=== PATIENT | female | born 1955 | race Caucasian/White ===

== ENCOUNTER → 2018-05-01 | Outpatient (CLI) | payer OTHER ==
[~2018-05-01] MED LIST: ALB0.5 INH; AML5 PO; ASPI-715 PO; AZEL50GE4 TP; BUDE10.2 IH; CALC250T7 PO; DES5 PO; DIOVAN/HCTZ; ESC10 PO; FISH OIL1 CAP PO; GLUC-142 PO; IBU200 PO; IBU800 PO; IPR14R INH; KET10 PO; LOR5/325 PO; MAXALT PO; MELO-150 PO; MON10 PO; PAN40 PO; PER PO; POTA99TA13 PO; TRAZ50 PO; TRAZADONE PO; VALS1TAB76 PO; VICODIN PO
== END ==
LOC: LAB 14:25
PROVIDERS: ATTEND Family Medicine
DX: G44.221 Chronic tension-type headache, intractable (principal)
CPT/HCPCS: 36415; 82040; 82247; 82310; 82374; 82435; 82565; 82947; 84075; 84132; 84155; 84295; 84450; 84460; 84520

== ENCOUNTER → 2018-05-02 | Outpatient (CLI) | payer OTHER ==
[~2018-05-02] MED LIST changes: +IOPAMIDOL 76% 75 ML INFUS BTL 75 ML ONE
--- NOTE | 2018-05-02 14:48 | RADIOLOGY IMAGING REPORT ---
FACILITY: [facility] - [place] PATIENT NAME: Regina Murdock : 1955 MR: [id number] V: [id number] EXAM DATE: ORDERING PHYSICIAN: BRANDY RENTERIA TECHNOLOGIST: Location: [facility] - [place] Patient: Regina Murdock : 1955 Visit/Account:[id number] Date of Sevice: 05/02/2018 EXAMINATION: Head CT without IV contrast Head CT with IV contrast HISTORY: Left-sided headache, photophobia, vision changes left eye TECHNIQUE: Contiguous axial images were obtained from the skull base to the vertex before and after IV contrast. Sagittal and coronal reformatted images are also submitted. Dose Lowering Technique One of the following dose optimization techniques was utilized in the performance of this exam: Autom ated exposure control; adjustment of the mA and/or kV according to the patient's size; or use of an i terative reconstruction technique. Specific details can be referenced in the facility's radiology C T exam operational policy. CONTRAST: 75 mL of IV Isovue-370 COMPARISON: None. FINDINGS: Brain volume: There is mild bifrontal cortical atrophy Ventricles: Normal. Acute ischemic changes: None. Hemorrhage: None. Masses / edema: There Is a 1 cm round cystic structure in the medial left temporal lobe which likely represents an incidental prominent perivascular space as opposed to an area of porencephaly There is an incidental small lipoma in the anterior interhemispheric fissure Enhancement: Normal. Borja-white: Negative. White matter: Normal. Vessels: Negative. Extra-axial: Negative. Calvarium / scalp: Negative. Skull base / visualized face: Negative. Visualized sinuses / orbits: There is a small air-fluid level in the left maxillary sinus and mucosa l thickening/fluid in the left ethmoid air cells IMPRESSION: There is a small air-fluid level in the left maxillary sinus and mucosal thickening/fluid in the left ethmoid air cells Incidental lipoma in the anterior interhemispheric fissure Mild bifrontal cortical atrophy Report Dictated By: Josefina Beckman MD at 05/02/2018 2:38 PM Report E-Signed By: Josefina Beckman MD at 05/02/2018 2:45 PM WSN:[email or web address]
== END ==
LOC: CT 02:02
PROVIDERS: ATTEND Family Medicine
DX: J32.0 Chronic maxillary sinusitis (principal); D17.79 Benign lipomatous neoplasm of other sites; G31.9 Degenerative disease of nervous system, unspecified
CPT/HCPCS: 70470; Q9967

== ENCOUNTER → 2018-05-21 | Outpatient (CLI) | payer OTHER ==
[~2018-05-21] MED LIST changes: -IOPAMIDOL 76% 75 ML INFUS BTL 75 ML ONE
[2018-05-21 15:57] LABS: PLATELET COUNT, AUTOMATED 128 K/uL (150-450)
--- NOTE | 2018-05-21 16:39 | RADIOLOGY IMAGING REPORT ---
FACILITY: [facility] - [place] PATIENT NAME: Regina Murdock : 1955 MR: [id number] V: [id number] EXAM DATE: [id number] ORDERING PHYSICIAN: BRANDY RENTERIA TECHNOLOGIST: [place] [facility] [place] Patient: Regina Murdock : 1955 Visit/Account:[id number] Date of Sevice: 05/21/2018 Exam type: CHEST PA AND LAT History: History of bronchitis Comparison: July 22, 2011. Findings: The lungs are free of acute effusions, infiltrates or edema. No evidence of acute peribronchial thic kening at this time Cardiac silhouette is normal in size. The trachea is in midline. There are spo ndylotic changes of the thoracic spine IMPRESSION: 1. No acute cardiopulmonary process is seen. No evidence of acute peribronchial thickening at this time Report Dictated By: Josefina Beckman MD at 05/21/2018 4:33 PM Report E-Signed By: Josefina Beckman MD at 05/21/2018 4:35 PM WSN:[email or web address]
== END ==
LOC: LAB 15:41
PROVIDERS: ATTEND Family Medicine
DX: J20.8 Acute bronchitis due to other specified organisms (principal); R50.9 Fever, unspecified; M47.814 Spondylosis without myelopathy or radiculopathy, thoracic region
CPT/HCPCS: 36415; 71046; 82040; 82247; 82310; 82374; 82435; 82565; 82947; 84075; 84132; 84155; 84295; 84450; 84460; 84520; 85025; 87502

== ENCOUNTER → 2018-08-06 | Outpatient (CLI) | payer OTHER ==
--- NOTE | 2018-08-08 16:26 | RADIOLOGY IMAGING REPORT ---
FACILITY: [facility] PATIENT NAME: STEPHANI SNOW : [id number] MR: [id number] V: [id number] EXAM DATE: ORDERING PHYSICIAN: BRANDY RENTERIA TECHNOLOGIST: Rosemarie Herrera PROCEDURE:BILATERAL DIGITAL SCREENING MAMMOGRAM WITH CAD ASSISTED INTERPRETATION & 3D TOMOSYNTHESIS COMPARISON:Prior mammograms 02/20/17, 01/15/15, 01/06/15, 11/28/13, 11/27/12. INDICATIONS:screening FINDINGS: The breasts are heterogeneous dense which may obscure small masses. The parenchymal pattern has remained stable allowing for difference in mammographic technique & patient positioning. There is a biopsy clip in the upper outer quadrant of the Right breast that remains stable. DIAGNOSTIC CATEGORY 2--BENIGN FINDING. RECOMMENDATIONS: ROUTINE MAMMOGRAM AND CLINICAL EVALUATION. IMPRESSION: BIRADS 2: Benign finding. No significant abnormality is seen. Dictated by: Josefina Beckman M.D. on 08/08/2018 at 9:39 Transcribed by: JUNG on 08/08/2018 at 9:42 Approved by: Josefina Beckman M.D. on 08/08/2018 at 16:25 [facility]
== END ==
LOC: MAMO 03:48
PROVIDERS: ATTEND Family Medicine
DX: Z12.31 Encounter for screening mammogram for malignant neoplasm of breast (principal)
CPT/HCPCS: 77063; 77067

== ENCOUNTER → 2018-11-16 | Outpatient (CLI) | payer OTHER ==
--- NOTE | 2018-11-16 15:59 | RADIOLOGY IMAGING REPORT ---
FACILITY: [facility] PATIENT NAME: Regina Murdock : 1955 MR: [id number] V: [id number] EXAM DATE: [id number] ORDERING PHYSICIAN: BRANDY RENTERIA TECHNOLOGIST: Location: [facility] Patient: Regina Murdock : 1955 Visit/Account:[id number] Date of Sevice: 11/16/2018 PELVIC HISTORY: Uterine and right adnexal enlargement TECHNIQUE: Transabdominal and transvaginal ultrasound pelvis. COMPARISON: None. FINDINGS: Uterus: Retroverted; 5.7 cm length x 3 cm AP x 4.6 cm transverse. Myometrium: There is an 8 mm fibroid along the superior fundus. Endometrium: There is a small amount of fluid noted within the endometrial canal; double thickness 6. 4 mm. Cervix: Nabothian cysts. Ovaries: Right - 2.4 x 1.1 x 2.6 cm Left - 2.2 x 1.8 x 1.9 cm Blood flow is documented in each ovary by duplex Doppler ultrasound. Adnexa: Grossly unremarkable. Free pelvic fluid: None. IMPRESSION: There is a retroverted uterus with an 8 mm a superior fundal fibroid A small amount of fluid is noted within the endometrial canal Nabothian cysts Report Dictated By: Josefina Beckman MD at 11/16/2018 3:52 PM Report E-Signed By: Josefina Beckman MD at 11/16/2018 3:55 PM WSN:[email or web address]
== END ==
LOC: US 00:27
PROVIDERS: ATTEND Family Medicine
DX: N85.4 Malposition of uterus (principal); D25.9 Leiomyoma of uterus, unspecified
CPT/HCPCS: 76856

== ENCOUNTER 2019-01-16 00:20 | Day surgery (SDC) | payer OTHER ==
[~2019-01-16] VITALS: Ht 172.7 cm; Wt 93.0 kg
[~2019-01-16 00:20] MED LIST changes: +FLUO-201 PO; +GOLYTE PO; +METO-233 PO; +SIMV10TA96 PO
[2019-01-16 09:55] VITALS: BP 130/80
[2019-01-16] MEDS ORDERED: LIDOCAINE MPF 1% 5 ML VIAL ONE (10:05)
[2019-01-16] MEDS ORDERED: KETAMINE HCL-NS 50 MG/5 ML SYR ONE (10:05)
[2019-01-16] MEDS ORDERED: PROPOFOL EMUL(*) 10MG/ML 20 ML 40 ML ONE (10:05)
[2019-01-16] MEDS ORDERED: NORMOSOL R SOLN(*) 1000 ML BAG 1,000 ML IV PRN (10:10)
[2019-01-16] MEDS ORDERED: LIDOCAINE/SOD BICARB 8.4% SYR ID ONE (10:10)
[2019-01-16 11:02] VITALS: BP 132/90
[2019-01-16 11:13] VITALS: BP 112/71
--- NOTE | 2019-01-16 11:16 | Short(Outpt) Discharge Summary ---
Discharge Summary Reason for Hosp/Final Diag: (1) GERD (gastroesophageal reflux disease) Status: Chronic Hospital Course & Plan: EGD with gastric polypectomy completed without problems. (2) Change in bowel habits Status: Chronic Hospital Course & Plan: Colonoscopy completed without problems. (3) Colon cancer screening Status: Chronic (4) Decreased stool caliber Status: Chronic (5) Constipation Status: Chronic Departure Discharge to: Home, Self Care Discharge Instructions Home Meds Active Scripts Peg/Electrolytes (GOLYTELY SOLUTION) 4,000 Ml Soln, 1 GAL PO ONCE, #1 GAL 0 Refills Prov:ROBBIE JORDAN MD 12/04/18 Reported Medications Simvastatin (ZOCOR) 10 Mg Tablet, 5 MG PO HS, TAB 01/09/19 Metoprolol Succinate (TOPROL XL) 50 Mg Tab.er.24h, 1 TAB PO QDAY, TAB 01/09/19 Fluoxetine Hcl (PROZAC) 10 Mg Capsule, 10 MG PO QDAY, CAPSULE 12/04/18 Albuterol Sulfate (Albuterol Inh Conc) 2.5 Mg/0.5 Ml Nebu, 2.5 MG INH PRN, 0 Refills DILUTE BEFORE USING 07/22/11 Ipratropium Henderson (Atrovent Inhaler) 14 Gm Inh, 0 INH PRN, 0 Refills TWO PUFFS 07/22/11 Ibuprofen (Motrin) 200 Mg Tab, 200 MG PO PRN, #20 0 Refills 07/22/11 [place]-3 Fatty Acids (Fish Oil) 1 Cap Capsule, 2 CAP PO DAILY, 0 Refills 07/22/11 Aspirin (Aspirin) 81 Mg Tablet.dr, 81 MG PO BID, 0 Refills 07/22/11 Pantoprazole Sod (Protonix) 40 Mg Tabec, 40 MG PO BID, 0 Refills 07/22/11 [Trazadone] No Conflict Check, 100 MG PO QHS, 0 Refills 07/22/11 Valsartan/Hydrochlorothiazide (Diovan Hct 320/12.5 Mg Tab) 1 Tab Tablet, 1 TAB PO QAM, 0 Refills 07/22/11 Discontinued Reported Medications Ketorolac Tromethamine (Toradol) 10 Mg Tab, 10 MG PO QID, #20 0 Refills 07/26/11 Calcium Citrate (Calcium Citrate) 250 Mg Tablet, 250 MG PO BID, 0 Refills 07/22/11 Potassium (Potassium) 99 Mg Tablet, 99 MG PO DAILY, 0 Refills 07/22/11 Montelukast Sodium (Singulair) 10 Mg Tab, 10 MG PO QHS, 0 Refills 07/22/11 Diet: Regular Activity: As Tolerated Special Instructions: Your upper endoscopy was completed without any problems. I removed a couple of small polyps from your stomach and they were sent to pathology. My office will call you in the next week or two to let you know what the polyps are but a vast majority of polyps in the stomach are benign and require nothing further. Your colonoscopy was completed without problems and your prep was excellent (Good Job!!). I didn't find any polyps, inflammation, obstruction, or any other problems in your colon. I recommend that your next colonoscopy be in 10 years. I have printed up a bowel regimen that you can try that consists of fiber, water, vegetables, etc to try and improve your constipation. Try this over the next 30 days and call my office in the next 6 weeks if you wish further help regarding your bowel movements. Problem Qualifiers (1) GERD (gastroesophageal reflux disease): Esophagitis presence: without esophagitis Qualified Codes: K21.9 - Gastro- esophageal reflux disease without esophagitis ROBBIE JORDAN MD Jan 16, 2019 11:16
[2019-01-16 11:43] VITALS: BP 135/76
[2019-01-16 11:59] VITALS: BP 142/77
[2019-01-16 12:02] VITALS: BP 123/81
== END 2019-01-16 12:21 | disposition home or self-care (01) ==
LOC: OR 00:20
PROVIDERS: ATTEND Surgery
DX: K31.7 Polyp of stomach and duodenum (principal)
CPT/HCPCS: 00813; 43251; 45378; 88305; 88342; J2001; J2704; J3490

== ENCOUNTER → 2019-02-05 | Outpatient (REF) | payer OTHER | LOC: ZZSENDIN 12:00 | PROVIDERS: ATTEND Orthopaedic Surgery Hand Surgery | DX: M71.341 Other bursal cyst, right hand (principal) | CPT/HCPCS: 88305 ==